=== PATIENT | male | born 1995 | race African-American/Black ===

== ENCOUNTER 2021-05-18 04:35 | Emergency (ER) | payer OTHER ==
[~2021-05-18] VITALS: Ht 180.3 cm; Wt 125.4 kg
--- NOTE | 2021-05-18 04:51 | PHYS DOC ---
General Adult HPI: HPI: ".. I need some antibiotics ... I got bad tooth.. and abscess.. I ve had this for a while... but now it worse.. " Patient is a 25 year old male who presents with above hx and complaints of dental infection pain. Pt. most painful area in 5 and 6. Patient does have swollen exterior face and adenopathy at angle of mandible. Multiple other areas of decay and gingivitis. Patient denies any history of immunosuppression. No recent travel. No specific ill contacts. Some teeth are rotted into the gum. Does not go to the vaccination has not got flu vaccination Review of Systems: Review of Systems: Constitutional: Denies fever or chills Eyes: Denies change in visual acuity HENT: Denies nasal congestion or sore throat complains of dental pain Respiratory: Denies cough or shortness of breath Cardiovascular: Denies chest pain or edema GI: Denies abdominal pain, nausea, vomiting, bloody stools or diarrhea : Denies dysuria Musculoskeletal: Denies back pain or joint pain Integument: Denies rash Neurologic: Denies headache, focal weakness or sensory changes Endocrine: Denies polyuria or polydipsia Lymphatic: Denies swollen glands Psychiatric: Denies depression or anxiety Family History: Family History: Noncontributory to presentation Current Medications: Current Meds: See nursing for home meds Allergies: Allergies: No known drug allergies Physical Exam: PE: Constitutional: Well developed, well nourished, in acute distress, non-toxic appearance. [] HENT: Normocephalic, atraumatic, bilateral external ears normal, oropharynx moist, no oral exudates, nose normal. Extensive dental decay, no trismus. Eyes: PERRLA, EOMI, conjunctiva normal, no discharge. [] Neck: Normal range of motion, no tenderness, supple, no stridor. [] Cardiovascular:Heart rate regular rhythm, no murmur [] Lungs & Thorax: Bilateral breath sounds equal apex of few scattered wheezes auscultation [] Abdomen: Bowel sounds normal, soft, no tenderness, no masses, no pulsatile masses. [] Skin: Warm, dry, no erythema, no rash. [] Back: No tenderness, no CVA tenderness. [] Extremities: No tenderness, no cyanosis, no clubbing, ROM intact, no edema. [] Neurologic: Alert and oriented X 3, normal motor function, normal sensory function, no focal deficits noted. [] Psychologic: Affect anxious, judgement normal, mood normal. [] EKG: EKG: [] Radiology/Procedures: Radiology/Procedures: [] Heart Score: C/O Chest Pain: N/A Risk Factors: Risk Factors: DM, Current or recent (<one month) smoker, HTN, HLP, family history of CAD, obesity. Risk Scores: Score 0 - 3: 2.5% MACE over next 6 weeks - Discharge Home Score 4 - 6: 20.3% MACE over next 6 weeks - Admit for Clinical Observation Score 7 - 10: 72.7% MACE over next 6 weeks - Early Invasive Strategies Course & Med Decision Making: Course & Med Decision Making Pertinent Labs and Imaging studies reviewed. (See chart for details) Patient take Keflex 500 mg 3 times a day. Take Tylenol and ibuprofen for pain. Follow-up with dentist or general surgeon. If unable to get in locally consider following with [facility] [place] [place] dental school or oral surgery school. Must follow-up. Impression: 1. Dental decay 2. Dental infection-abscess at area 5 and 6 shows spontaneous drainage 3. Gingivitis [] Dragon Disclaimer: Dragon Disclaimer: This electronic medical record was generated, in whole or in part, using a voice recognition dictation system. Departure Departure: Referrals: PCP,NO (PCP) Scripts Cephalexin (KEFLEX) 500 Mg Capsule 500 MG PO TID for infection, #30 CAP Prov: GE GARLAND MD 05/18/21 Dragon Disclaimer This chart was dictated in whole or in part using Voice Recognition software in a busy, high-work load, and often noisy Emergency Department environment. It may contain unintended and wholly unrecognized errors or omissions. GE GARLAND MD May 18, 2021 04:51
[2021-05-18 05:20] VITALS: BP 143/88
[2021-05-18] MEDS ORDERED: CEPH500C PO (05:35)
[2021-05-18] MEDS ORDERED: cefTRIAXone IM 1 GM VIAL IM ONE (05:45)
[2021-05-18] MEDS ORDERED: KETOROLAC 60 MG/2 ML VIAL. IM ONE (05:45)
== END 2021-05-18 06:05 | disposition home or self-care (01) ==
LOC: ER 04:35
DX: K04.7 Periapical abscess without sinus (principal)
CPT/HCPCS: 96372; 99284; J0696; J1885